=== PATIENT | female | born 1930 | race Caucasian/White ===

== ENCOUNTER 2018-11-14 17:56 | Outpatient (CLI) | payer MEDICARE, BC ==
--- NOTE | 2018-11-14 18:18 | CT ---
Exam: Head CT without contrast HISTORY: Severe vertigo beginning this morning COMPARISON: 05/29/2017 FINDINGS: Hemorrhage: No intraparenchymal hemorrhage or extra-axial hematoma. Brain parenchyma: Cortical lyles-white matter differentiation is preserved. No mass effect or midline shift. 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 Minimal white matter hypodensities due to chronic small vessel ischemic change. Ventricular system: Ventricles and sulci are patent and symmetric. Calvarium: Intact. Sinuses and mastoid air cells: Adequate aeration. IMPRESSION: No acute intracranial process.
== END 2018-11-14 17:57 | disposition home or self-care (01) ==
LOC: NAV CT 17:56
PROVIDERS: ATTEND Internal Medicine
DX: R42 Dizziness and giddiness (principal)
CPT/HCPCS: 70450